=== PATIENT | male | born 1985 | race Caucasian/White ===

== ENCOUNTER 2019-08-12 12:07 | Emergency (ER) | payer SELFPAY ==
[2019-08-12 12:27] VITALS: BP 155/87; PULSE 77; RESP 20; TEMP 36.7; O2SAT 98; BMI 35.4
--- NOTE | 2019-08-12 12:38 | XR_ITS ---
WS: [id number] XR chest 1V portable [id number] REASON FOR EXAM: cough FINDINGS: The heart and mediastinum were normal. The lung fraga are well aerated. There is no pneumonia, pleural effusion, pulmonary edema, mass effe ct, or pneumothorax. The left hilum is slightly prominent and there is numerous granulomas seen not n oted on previous exam February 20, 2016. The apices sees were normal. XR/XR chest 1V portable [id number] IMPRESSION: Slight prominence of the left hilum with numerous granulomas. A mass is not see n. Negative chest
--- NOTE | 2019-08-12 12:48 | W.ED.SOB ---
HPI - SOB/Dyspnea General: Chief Complaint: Shortness of Breath/Dyspnea Stated Complaint: cough/right side pain Time Seen by Provider: 08/12/19 12:38 History of Present Illness: Associated symptoms: Reports palpitations Review of Systems General: Reports: 10 or more systems reviewed and unremarkable except in HPI and below Card: Reports: palpitations and shortness of breath on exertion Resp: Reports: shortness of breath, non-productive cough and pain on inspiration PFSH ED PFSH: Social History Smoking and tobacco status: current every day smoker Physical Exam Const: COMMON NORMALS: oriented x3 and alert GENERAL APPEARANCE: cooperative and ill appearing HENMT: COMMON NORMALS: normocephalic and head/scalp atraumatic HEAD & SCALP: normocephalic and atraumatic THROAT: postnasal drainage Neck/C-Spine: COMMON NORMALS: no JVD Resp: COMMON NORMALS: no use of accessory muscles and clear to auscultation bilaterally EFFORT & INSPECTION: Yes able to speak in complete sentences AUSCULTATION: clear to auscultation bilaterally Cardio: COMMON NORMALS: no JVD, regular rate and regular rhythm RATE: regular rate RHYTHM: regular rhythm Extremity: COMMON NORMALS: normal to inspection, full ROM and no pedal edema Neuro: COMMON NORMALS: oriented x3 SENSORIUM/ORIENTATION: Yes alert Course Vital Signs: Vital signs: Vital Signs Temperature 98.1 F 08/12/19 12:27 Pulse Rate 77 08/12/19 12:27 Respiratory Rate 20 H 08/12/19 12:27 Blood Pressure 155/87 08/12/19 12:27 Pulse Oximetry 98 08/12/19 12:27 MDM - SOB/Dyspnea Lab Data: Labs: Lab Results 08/12/19 08/12/19 08/12/19 Range/Units 13:02 13:02 13:02 WBC 5.6 (4.0-10.0) 10^3/ uL RBC 4.93 (4.1-5.3) 10^6/u L Hgb 15.4 (11.7-16.6) g/dL Hct 47.0 (42.0-52.0) % MCV 95.3 H (80-94) fL MCH 31.2 (28.0-34.0) pg MCHC 32.8 (30.0-36.0) g/dL RDW 11.9 L (12.1-15.1) % Plt Count 230 (130-400) 10^3/c mm MPV 10.1 (7.4-10.4) fL Neut % (Auto) 65.3 % Lymph % (Auto) 20.8 % [place] % (Auto) 7.5 % Eos % (Auto) 5.5 % Baso % (Auto) 0.5 % Neut # (Auto) 3.7 (1.8-7.7) 10^3/u L Lymph # (Auto) 1.2 (0.8-4.8) 10^3/u L [place] # (Auto) 0.4 (0.2-0.9) 10^3/u L Eos # (Auto) 0.3 (0.0-0.8) 10^3/u L Baso # (Auto) 0.0 (0.0-0.1) 10^3/u L Nucleated RBC % (a uto) 0 % Nucleated RBCs # 0.0 /100WBC D-Dimer 0.64 H (0-0.59) ug/mIFE U Sodium 141 (136-145) mmol/L Potassium 3.9 (3.5-5.1) mmol/L Chloride 105 (98-107) mmol/L Carbon Dioxide 30 H (22-29) mmol/L Anion Gap 9.9 (5-19) BUN 11 (6-20) mg/dL Creatinine 0.9 (0.7-1.2) mg/dL GFR Calculation 96.6 (90-130) mL/min Glucose 110 (65-115) mg/dL Calculated Osmolal ity 289 (285-295) mOsm/k g Calcium 9.1 (8.5-10.5) mg/dL Total Bilirubin 0.3 (0.15-1.2) mg/dL AST 17 (0-40) U/L ALT 28 (0-41) U/L Alkaline Phosphata se 75 (40-130) IU/L NT-Pro-B Natriuret Pep 20 (0-125) pg/mL Total Protein 7.6 (6.6-8.7) g/dL Albumin 3.7 (3.5-5.2) g/dL Globulin 3.9 (1.3-4.6) g/dL Influenza Type A A g (Negative) POC Influenza B Ag (Negative) 08/12/19 Range/Units 13:25 WBC (4.0-10.0) 10^3/ uL RBC (4.1-5.3) 10^6/u L Hgb (11.7-16.6) g/dL Hct (42.0-52.0) % MCV (80-94) fL MCH (28.0-34.0) pg MCHC (30.0-36.0) g/dL RDW (12.1-15.1) % Plt Count (130-400) 10^3/c mm MPV (7.4-10.4) fL Neut % (Auto) % Lymph % (Auto) % [place] % (Auto) % Eos % (Auto) % Baso % (Auto) % Neut # (Auto) (1.8-7.7) 10^3/u L Lymph # (Auto) (0.8-4.8) 10^3/u L [place] # (Auto) (0.2-0.9) 10^3/u L Eos # (Auto) (0.0-0.8) 10^3/u L Baso # (Auto) (0.0-0.1) 10^3/u L Nucleated RBC % (a uto) % Nucleated RBCs # /100WBC D-Dimer (0-0.59) ug/mIFE U Sodium (136-145) mmol/L Potassium (3.5-5.1) mmol/L Chloride (98-107) mmol/L Carbon Dioxide (22-29) mmol/L Anion Gap (5-19) BUN (6-20) mg/dL Creatinine (0.7-1.2) mg/dL GFR Calculation (90-130) mL/min Glucose (65-115) mg/dL Calculated Osmolal ity (285-295) mOsm/k g Calcium (8.5-10.5) mg/dL Total Bilirubin (0.15-1.2) mg/dL AST (0-40) U/L ALT (0-41) U/L Alkaline Phosphata se (40-130) IU/L NT-Pro-B Natriuret Pep (0-125) pg/mL Total Protein (6.6-8.7) g/dL Albumin (3.5-5.2) g/dL Globulin (1.3-4.6) g/dL Influenza Type A A g Negative (Negative) POC Influenza B Ag Negative (Negative) Discharge Plan Discharge Patient Disposition: Home, Self-Care Clinical Impression: Bronchitis, Acute dyspnea Condition: Stable Prescriptions: New Bactrim DS 800-160 mg tablet 1 tab PO BID 10 Days Qty: 20 RF: 0 prednisone 10 mg tablets,dose pack See Rx Instructions .ROUTE .COMPLEX Qty: 21 RF: 0 albuterol sulfate 90 mcg/actuation HFA aerosol inhaler 2 inh INHALATION Q6H PRN (Reason: shortness of breath or wheezing) Qty: 8.5 RF: 0 Discharge Orders: Discharge Order (Routine); Ordered 08/12/19 Ordered By: Deepak Wood Coding Level of Care Code ED Veneer Jointer Offbearer for Chg Fwd Exam Detailed
[2019-08-12 13:12] LABS: Basophils % 0.5 %; Eosinophils # 0.3 10^3/uL (0.0-0.8); Eosinophils % 5.5 %; Hemoglobin 15.4 g/dL (11.7-16.6); Lymphocytes # 1.2 10^3/uL (0.8-4.8); Lymphocytes % 20.8 %; Mean Corpuscular HGB Conc 32.8 g/dL (30.0-36.0); Mean Corpuscular Hemoglobin 31.2 pg (28.0-34.0); Mean Corpuscular Volume 95.3 fL (80-94); Mean Platelet Volume 10.1 fL (7.4-10.4); Monocytes # 0.4 10^3/uL (0.2-0.9); Monocytes % 7.5 %; Neutrophils # 3.7 10^3/uL (1.8-7.7); Neutrophils % 65.3 %; Nucleated Red Blood Cells % 0 %; Platelet Count 230 10^3/cmm (130-400); Red Blood Count 4.93 10^6/uL (4.1-5.3); Red Cell Distribution Width 11.9 % (12.1-15.1); White Blood Count 5.6 10^3/uL (4.0-10.0)
[2019-08-12] MEDS: sodium chloride 0.9% 500 ML 999 ML IV (13:17)
[2019-08-12 13:22] LABS: D Dimer 0.64 ug/mIFEU (0-0.59)
--- NOTE | 2019-08-12 13:24 | CT_ITS ---
WS: [id number] CTA OF THE CHEST WITH PULMONARY EMBOLISM PROTOCOL TECHNIQUE: High-resolution contrast enhanced CTA of the chest with coronal and sagittal reformatted i mages with pulmonary embolism protocol. MIP images are also reviewed. CLINICAL INFORMATION: dyspnea COMPARISON: None. DLP: 1084.[address] scans at [facility] use at least one of these dose optimization techniques: automat ed exposure control; mA and/or kV adjustment per patient size (includes targeted exams where dose is matched to clinical indication); or iterative reconstruction. FINDINGS: Some images degraded by motion. Proximal main pulmonary arteries are normal. Segmental and subsegmental pulmonary arteries appear pat ent. Distal subsegmental pulmonary arteries degraded by motion. No evidence for pulmonary embolus. Right perihilar groundglass infiltrate with right hilar lymphadenopathy measuring 1.8 cm. Enlarged le ft AP window lymph nodes measuring 12 mm in short axis dimension. Enlarged left hilar lymph nodes. Ri ght infrahilar lymphadenopathy measuring 1.8 cm. Associated bronchovascular thickening. A few hazy groundglass opacities in the left upper lobe. Right basilar atelectasis. Adrenal glands are normal. Partially visualized hepatomegaly. Normal GE junction. Adrenal glands are normal. Partially visualized right renal low-attenuation lesion likely cyst. Prominent lymph node in the upper abdomen at the saul hepatis measuring 13 mm nonspecific but likely reactive. Notified Deepak Wood DO at 08/12/2019 2:[address]/CT angio chest PE protcl [id number] IMPRESSION: 1. Proximal main pulmonary arteries are normal. No evidence of pulmonary embol us. 2. Hazy groundglass infiltrates in the right hilum and right upper lobe. A few patchy groundglass opacities in the left upper lobe. Findings may be infectiou s or inflammatory in etiology. 3. Bilateral hilar lymphadenopathy with right infrahilar lymphadenopathy. Asso ciated bronchovascular thickening. Findings may be infectious/inflammatory forrest ellis malignancy is not excluded. Recommend short interval follow-up chest CT aft er treatment. 4. Enlarged AP window lymph nodes. 5. Partially visualized hepatomegaly in the upper abdomen. 6. Slightly enlarged lymph node in the upper abdomen partially visualized jama uring 13 mm.
[2019-08-12 13:38] LABS: Alanine Aminotransferase 28 U/L (0-41); Albumin Level 3.7 g/dL (3.5-5.2); Alkaline Phosphatase 75 IU/L (40-130); Anion Gap 9.9 (5-19); Aspartate Amino Transferase 17 U/L (0-40); Blood Urea Nitrogen 11 mg/dL (6-20); Calcium 9.1 mg/dL (8.5-10.5); Carbon Dioxide 30 mmol/L (22-29); Chloride 105 mmol/L (98-107); Globulin 3.9 g/dL (1.3-4.6); Glomerular Filtration Rate 96.6 mL/min (90-130); Glucose 110 mg/dL (65-115); NT Pro B Type Natriuretic Pept 20 pg/mL (0-125); Osmolality Calculated 289 mOsm/kg (285-295); Potassium 3.9 mmol/L (3.5-5.1); Sodium 141 mmol/L (136-145); Total Bilirubin 0.3 mg/dL (0.15-1.2); Total Protein 7.6 g/dL (6.6-8.7)
[2019-08-12] MEDS: iohexol 350 mg/mL 100 mL Btl IV ×2 (13:46→13:47)
[2019-08-12 14:01] LABS: Influenza A by IFA Negative (Negative); Influenza B by IFA Negative (Negative)
[2019-08-12 15:07] VITALS: BP 126/78; PULSE 68; RESP 18; TEMP 37; O2SAT 98
== END 2019-08-12 15:10 | disposition home or self-care (01) ==
PROVIDERS: Emergency Provider Family Medicine
DX: J40 Bronchitis, not specified as acute or chronic (principal); F17.200 Nicotine dependence, unspecified, uncomplicated
CPT/HCPCS: 12345; 36415; 71045; 71275; 80053; 83880; 85025; 85378; 87804; 99283; 99284; J7040; Q9967

== ENCOUNTER 2019-10-18 14:54 | Emergency (ER) | payer SELFPAY ==
[2019-10-18 15:07] VITALS: BP 141/88; PULSE 78; RESP 18; TEMP 36.5; O2SAT 98; BMI 35.4
--- NOTE | 2019-10-18 15:51 | W.ED.SKABFB ---
HPI - Skin/Abscess/Foreign Bdy General: Chief complaint: Skin/Abscess/Foreign Body Stated complaint: rash Time Seen by Provider: 10/18/19 15:51 Source: patient Mode of arrival: ambulatory Limitations: no limitations History of Present Illness: HPI narrative: Patient is a 34-year-old male who presents to ED today with multiple red lesions to the left side of his abdomen and left arm that he began noticing yesterday. He describes the lesions as itchy in nature. He has not had any new medications or environmental, chemical, household exposures. States he does have cats in his home. complaint: lesion Onset (ago): day(s) (yesterday) Tetanus up to date: yes Location: chest and LUE Quality: pruritic Relieving factors: none Exacerbating factors: none Context: none Associated symptoms: Deny chills or fever(s) Treatments prior to arrival: none Review of Systems Const: Denies: fever(s) or chills ENMT: Denies: odynophagia, ear or mastoid pain or nasal congestion Card: Denies: chest pain Resp: Denies: dyspnea Musc: Denies: neck pain, back pain, extremity pain, extremity swelling, joint pain or joint swelling Skin/Breast: Reports: new lesions Neuro: Denies: headache(s), numbness in extremities or weakness in extremities PFSH ED PFSH: Social History Smoking and tobacco status: current every day smoker Physical Exam Const: COMMON NORMALS: no acute distress, patient oriented x3, no limitations and well nourished NUTRITIONAL APPEARANCE: obese Neuro: COMMON NORMALS: patient oriented x3 Skin: OTHER: pt has approximately 5 bite like lesions to L side of his abdomen and one similar lesion to L forearm; lesions are erythematous and wheeled and some of them have small punctate lesion consistent with bite Course Vital Signs: Vital signs: Vital Signs Temperature 97.7 F 10/18/19 15:07 Pulse Rate 78 10/18/19 15:07 Respiratory Rate 18 10/18/19 15:07 Blood Pressure 141/88 10/18/19 15:07 Pulse Oximetry 98 10/18/19 15:07 Discharge Plan Discharge Patient Disposition: Home, Self-Care Clinical Impression: Insect bite, multiple Condition: Stable Prescriptions: No Action prednisone 10 mg tablets,dose pack See Rx Instructions .ROUTE .COMPLEX Qty: 21 RF: 0 albuterol sulfate 90 mcg/actuation HFA aerosol inhaler 2 inh INHALATION Q6H PRN (Reason: shortness of breath or wheezing) Qty: 8.5 RF: 0 Discharge Orders: Discharge Order (Routine); Ordered 10/18/19 Ordered By: Cata Alan Discharge Diet: Usual diet Discharge Activity: Resume usual activity Patient Instructions: Insect Bites and Stings Discharge Date/Time: 10/18/19 16:00 Coding Level of Care Code ED Solid Fiber Paster Operator for Mary Chacno
== END 2019-10-18 16:00 | disposition home or self-care (01) ==
PROVIDERS: Emergency Provider Physician Assistant
DX: S30.861A Insect bite (nonvenomous) of abdominal wall, initial encounter (principal); S40.862A Insect bite (nonvenomous) of left upper arm, initial encounter; W57.XXXA Bitten or stung by nonvenomous insect and other nonvenomous arthropods, initial encounter; F17.210 Nicotine dependence, cigarettes, uncomplicated
CPT/HCPCS: 12345; 99281

== ENCOUNTER 2020-10-11 13:28 | Emergency (ER) | payer SELFPAY ==
[2020-10-11 13:39] VITALS: BP 129/79; PULSE 92; RESP 18; TEMP 36.7; O2SAT 97; BMI 42.8
--- NOTE | 2020-10-11 14:10 | XRR_ITS ---
PROCEDURE INFORMATION: Exam: XR Left Hip Exam date and time: 10/11/2020 2:34 PM Age: 35 years old Clinical indication: Hip pain; Left hip; Patient HX: No known trauma, woke up with pain; Additional info: Pain; One view pelvis too please TECHNIQUE: Imaging protocol: XR Left hip. Views: 2 or 3 views hip with pelvis when performed. COMPARISON: CT abdomen pelvis w con* [id number] 02/03/2017 2:20 PM FINDINGS: Bones/joints: Unremarkable. No acute fracture. Soft tissues: Unremarkable. XR/XR hip LT 2-3V wo/w pel* [id number] IMPRESSION: No acute findings.
--- NOTE | 2020-10-11 14:10 | W.ED.EXTPRO ---
HPI - Extremity Problem General: Chief complaint: Extremity Problem,Nontraumatic Stated complaint: SEVERE L HIP PAIN, UNABLE TO RAISE LEG Time Seen by Provider: 10/11/20 14:03 Source: patient Mode of arrival: wheelchair Limitations: no limitations History of Present Illness: HPI Narrative: Patient is a 35-year-old male who presents to ED today with a complaint of left hip pain over the past few days. Patient states pain is progressively worsened since onset. He has not had any known injury or trauma to the hip. He has not had any previous issues with the joint. He denies joint feeling red or warm. He has not been running fevers. He states pain is worse with walking. He states it feels like it is out of joint . He denies numbness/tingling/loss of sensation to the left lower extremity. He has not noticed any swelling or color/temperature changes to the extremity. MD Complaint: joint pain Onset (ago): day(s) Pain Consistency: constant Location: left and lower extremity Radiation: none Relieving factors: nothing Exacerbating factors: range of motion, weight bearing, walking and palpation Associated symptoms: Reports no associated symptoms; Deny chest pain or fever(s) Review of Systems Const: Denies: fever(s), chills, body aches, fatigue or malaise Card: Denies: chest pain or palpitations Resp: Denies: dyspnea GI: Denies: nausea or vomiting : Denies: flank pain or dysuria Musc: Reports: joint pain and limited range of motion; Denies: neck pain, back pain, extremity pain, extremity swelling, joint swelling, joint redness, joint warmth or muscle cramps Neuro: Reports: difficulty walking (secondary to discomfort ); Denies: numbness in extremities, weakness in extremities or sensory changes [facility] ED PFSH: Social History Smoking and tobacco status: current every day smoker Physical Exam Const: COMMON NORMALS: no acute distress, patient oriented x3, no limitations and alert GENERAL APPEARANCE: cooperative NUTRITIONAL APPEARANCE: obese morbidly obese ORIENTATION/CONSCIOUSNESS: Yes awake, Yes oriented to person, Yes oriented to place and Yes oriented to time Resp: COMMON NORMALS: normal respiratory effort and clear to auscultation bilaterally AUSCULTATION: clear to auscultation bilaterally Cardio: COMMON NORMALS: regular rate and regular rhythm RATE: regular rate RHYTHM: regular rhythm : COMMON NORMALS: Yes no CVA tenderness BLADDER/KIDNEY EXAM: Yes no CVA tenderness Back/Pelvis: COMMON NORMALS: no CVA tenderness, thoracic and lumbar spine normal to inspection, no thoracic nor lumbar tenderness, thoraco-lumbar ROM normal and straight leg raise negative bilaterally THORACIC SPINE/UPPER BACK: Yes normal to inspection and Yes thoracic ROM normal LUMBAR SPINE/LOWER BACK: Yes normal to inspection and Yes lumbar ROM normal PELVIS: Yes buttocks normal SACROILIAC JOINTS: Yes SI joints normal Extremity: COMMON NORMALS: capillary refill normal, no joint enlargement, no clubbing, cyanosis or edema, no calf tenderness and no pedal edema GENERAL: Yes normal exam except as noted LEFT LOWER EXTREMITY: Yes hip joint Left hip: Yes inspection (normal visual inspection ), Yes palpation (TTP posterior/lateral ), Yes ROM (decreased secondary to discomfort) and Yes neurovascular exam (normal) OTHER: pain with hip flexion however he is able to fully flex knee up against his chest w/o eliciting pain from the hip Neuro: COMMON NORMALS: patient oriented x3, moves all extremities, no focal motor deficits and no sensory deficits noted SENSORIUM/ORIENTATION: Yes alert, Yes oriented to person, Yes oriented to place and Yes oriented to time GAIT: Yes Unable to assess gait Skin: COMMON NORMALS: no rashes or lesions noted GENERAL SKIN EXAM: no rashes or lesions noted TRAUMA: no lacerations or abrasions Course Vital Signs: Vital signs: Vital Signs Temperature 98.0 F 10/11/20 13:39 Pulse Rate 92 10/11/20 13:39 Respiratory Rate 18 10/11/20 13:39 Blood Pressure 129/79 10/11/20 13:39 Pulse Oximetry 97 10/11/20 13:39 MDM - Extremity (Nontraumatic) MDM Narrative: Medical decision making narrative: Pain down from a 10/10 to a 5/10. He was able to ambulate here. XR negative. He is stable for DC with follow up. Return to ED precautions discussed. Imaging Data^: XR L hip/pelvis: Radiologist's impression: [facility] [address] [place] [address] XRay Report Signed Patient: Abdulkadir Cruz Unit #: [id number] : [id number] Age/Sex: 35 / M ADM Date: 10/11/20 Loc: ER Room/Bed: Attending Dr: Ordering Provider/Ordering MD: Cata Alan Date of Service: 10/11/20 Procedure(s): XR hip LT 2-3V wo/w pel* [id number] Accession Number(s): [id number] Report Number: [id number] PROCEDURE INFORMATION: Exam: XR Left Hip Exam date and time: 10/11/2020 2:34 PM Age: 35 years old Clinical indication: Hip pain; Left hip; Patient HX: No known trauma, woke up with pain; Additional info: Pain; One view pelvis too please TECHNIQUE: Imaging protocol: XR Left hip. Views: 2 or 3 views hip with pelvis when performed. COMPARISON: CT abdomen pelvis w con* [id number] 02/03/2017 2:20 PM FINDINGS: Bones/joints: Unremarkable. No acute fracture. Soft tissues: Unremarkable. XR/XR hip LT 2-3V wo/w pel* [id number] IMPRESSION: No acute findings. Dictated By: Jv Frazier MD Signed By: Jv Frazier MD Signed Date/Time: 10/11/201518 DD/ 17 Discharge Plan Discharge Patient Disposition: Home Clinical Impression: Acute pain of left hip Condition: Stable Prescriptions: New ibuprofen 800 mg tablet 800 mg PO Q8H PRN (Reason: pain) Qty: 20 RF: 0 Medrol (Scott) 4 mg tablets,dose pack See Rx Instructions .ROUTE .COMPLEX Qty: 21 RF: 0 Discontinued prednisone 10 mg tablets,dose pack See Rx Instructions .ROUTE .COMPLEX Qty: 21 RF: 0 No Action albuterol sulfate 90 mcg/actuation HFA aerosol inhaler 2 inh INHALATION Q6H PRN (Reason: shortness of breath or wheezing) Qty: 8.5 RF: 0 Discharge Orders: Discharge ED (Routine); Ordered 10/11/20 Ordered By: Cata Alan Activity Restrictions/Additional Instructions: Fill your prescriptions and begin taking them as directed. You may also apply ice/heat as needed for discomfort. Gentle stretching exercises. Please follow-up with your primary care provider if pain does not improve in the next 3 to 5 days. You may return to the emergency department for severe worsening pain, inability to ambulate, color or temperature changes to your lower extremity, losing control of your bowels, inability to urinate, or any other concerns you may have. Coding Level of Care Code ED Digital Associate for Chg Fwd Exam Comprehensive
[2020-10-11] MEDS: dexamethasone 10 mg/mL INJ 8 MG IM (15:22)
[2020-10-11] MEDS: ketorolac 60 mg/2 mL INJ IM (15:25)
[2020-10-11] MEDS: orphenadrine 30 mg/mL Inj 2 mL 60 MG IM (15:28)
== END 2020-10-11 17:15 | disposition home or self-care (01) ==
PROVIDERS: Emergency Provider Physician Assistant
DX: M25.552 Pain in left hip (principal); F17.210 Nicotine dependence, cigarettes, uncomplicated
CPT/HCPCS: 73502; 96372; 99283; J1100; J1885; J2360

== ENCOUNTER 2021-04-15 16:56 | Emergency (ER) | payer SELFPAY ==
[2021-04-15 17:00] VITALS: BP 143/104; PULSE 112; RESP 17; TEMP 36.6; O2SAT 97; BMI 44.3
--- NOTE | 2021-04-15 17:06 | ED_ITS ---
HPI - Skin/Abscess/Foreign Bdy General: Chief complaint: Skin/Abscess/Foreign Body Stated complaint: Spot under stomach causing discomfort Time Seen by Provider: 04/15/21 17:06 History of Present Illness: HPI narrative: 36-year-old male comes in with a tender bulging area to his right lower abdomen. Patient reports for the last 4 days he has noticed it and it seems to have gotten larger. Patient appears well. Patient appears no acute distress. Review of Systems General: Reports: 10 or more systems reviewed and unremarkable except in HPI and below Skin/Breast: Reports: changing lesions and other PFSH ED PFSH: Social History Smoking and tobacco status: current every day smoker Physical Exam Const: COMMON NORMALS: no acute distress and patient oriented x3 GENERAL APPEARANCE: cooperative HENMT: COMMON NORMALS: normocephalic HEAD & SCALP: normal to inspection and normocephalic Eye: GENERAL EYE: appearance normal, both eyes and all related structures Neck/C-Spine: COMMON NORMALS: full ROM Chest: COMMONS NORMALS: normal inspection of the chest Resp: COMMON NORMALS: normal respiratory effort EFFORT & INSPECTION: Yes able to speak in complete sentences Cardio: COMMON NORMALS: regular rate and regular rhythm RATE: regular rate RHYTHM: regular rhythm GI: COMMON NORMALS: non-tender Extremity: COMMON NORMALS: normal to inspection Neuro: COMMON NORMALS: patient oriented x3 and moves all extremities Psych: COMMON NORMALS: mental status grossly normal and cooperative Skin: NARRATIVE SKIN EXAM: Area of redness approximately 6 cm to the right lower abdomen with a central 2 cm bulging abscess. Patient has fluctuance in the center part of his abscess. Some ecchymosis and redness is noted to it. Procedures Abscess I/D Site: abdomen Side (if applicable): right Technique: incised with #11 blade Course Vital Signs: Vital signs: Vital Signs Temperature 97.8 F 04/15/21 17:00 Pulse Rate 112 H 04/15/21 17:00 Respiratory Rate 17 04/15/21 17:00 Blood Pressure 143/104 04/15/21 17:00 Pulse Oximetry 97 04/15/21 17:00 MDM - Skin/Abscess/Foreign Bdy MDM Narrative: Medical decision making narrative: 36-year-old male comes in with a lesion to his right lower abdomen. On exam we noticed an abscess with some surrounding induration of the tissue. Approximately 6 cm total. Vital signs are normal except for some mild elevation in pulse at 112. Patient is afebrile. Differential diagnosis includes abscess, cellulitis, infected insect bite. Patient appears to have an abscess, I went ahead and lanced it with 11 blade scalpel. Purulent bloody drainage was expressed from the wound. Patient tolerated well. Ice pack was used for anesthesia. Patient was started on Bactrim 1 tablet twice a day for 5 days. Patient was given 1 hydrocodone tablet tonight for pain. Recommend follow-up as needed. Return to the ER for worsening symptoms or new concerns. Discharge Plan Discharge Patient Disposition: Home Clinical Impression: Abscess of skin or subcutaneous tissue Qualifiers: Site of cutaneous abscess: trunk Site of cutaneous abscess of trunk: abdominal wall Qualified Code(s): L02.211 - Cutaneous abscess of abdominal wall Condition: Stable Prescriptions: New Bactrim DS 800-160 mg tablet 1 tab PO BID 5 Days Qty: 10 RF: 0 No Action albuterol sulfate 90 mcg/actuation HFA aerosol inhaler 2 inh INHALATION Q6H PRN (Reason: shortness of breath or wheezing) Qty: 8.5 RF: 0 ibuprofen 800 mg tablet 800 mg PO Q8H PRN (Reason: pain) Qty: 20 RF: 0 Medrol (Scott) 4 mg tablets,dose pack See Rx Instructions .ROUTE .COMPLEX Qty: 21 RF: 0 Discharge Orders: Discharge ED (Routine); Ordered 04/15/21 Ordered By: Bruce Bhat Discharge Diet: Usual diet Discharge Activity: Increase activity as tolerated Patient Instructions: Abscess Incision and Drainage (DC), Opioid Safety Activity Restrictions/Additional Instructions: Home and rest. Use warm moist packs to the area to help promote drainage. Drink plenty of water with antibiotic. Activity as tolerated. Follow-up with primary care in 3 days for recheck. Return to the ER for high fever greater than 100.4, worsening symptoms, or new concerns. Coding Level of Care Code ED Reinsurance Clerk for Mary Chacon Exam Comprehensive
[2021-04-15 17:30] VITALS: PULSE 112; RESP 17; O2SAT 97
[2021-04-15] MEDS: HYDROcodone-acetaminophen 7.5-325 mg Tablet 1 TAB PO (17:30)
[2021-04-15] MEDS: sulfamethoxazole-trimeth DS 160-800 mg Tablet 1 TAB PO (17:30)
== END 2021-04-15 17:33 | disposition home or self-care (01) ==
PROVIDERS: Emergency Provider Nurse Practitioner Family
DX: L02.211 Cutaneous abscess of abdominal wall (principal); F17.210 Nicotine dependence, cigarettes, uncomplicated
CPT/HCPCS: 10060; 99283

== ENCOUNTER 2021-08-28 02:45 | Emergency (ER) | payer SELFPAY ==
[2021-08-28 02:56] VITALS: BP 151/95; PULSE 78; RESP 22; TEMP 36.6; O2SAT 99; BMI 36.9
--- NOTE | 2021-08-28 04:08 | CTR_ITS ---
PROCEDURE INFORMATION: Exam: CT Abdomen And Pelvis With Contrast Exam date and time: 08/28/2021 4:52 AM Age: 36 years old Clinical indication: Injury or trauma; Fall; Blunt; Llq; Injury details: Left rib/side pain; Additional info: Fall luq pain TECHNIQUE: Imaging protocol: Computed tomography of the abdomen and pelvis with contrast. Radiation optimization: All CT scans at this facility use at least one of these dose optimization techniques: automated exposure control; mA and/or kV adjustment per patient size (includes targeted exams where dose is matched to clinical indication); or iterative reconstruction. Contrast material: [id number]; Contrast volume: 95 ml; Contrast route: INTRAVENOUS (IV); COMPARISON: CT abdomen pelvis w con* [id number] 02/03/2017 2:20 PM RADIATION DOSE METRICS: Total DLP (mGy-cm): 1981.38 FINDINGS: Lungs: The lung bases are clear. No effusion Liver: Normal. No mass. Gallbladder and bile ducts: No wall thickening, pericholecystic fluid or stones. Pancreas: Normal. No ductal dilation. Spleen: Normal. No splenomegaly. Adrenal glands: Normal. No mass. Kidneys and ureters: 1.1 cm right renal cyst. Stomach and bowel: Diverticulosis without diverticulitis. Mild amount of formed stool in the colon. Appendix: No evidence of appendicitis. Intraperitoneal space: Unremarkable. No free air. No significant fluid collection. Vasculature: Unremarkable. No abdominal aortic aneurysm. Lymph nodes: Unremarkable. No enlarged lymph nodes. Urinary bladder: Unremarkable as visualized. Reproductive: Unremarkable as visualized. Bones/joints: Nondisplaced left 7th rib fracture. Right-sided osteitis condensans mahogany. Soft tissues: Unremarkable. CT/CT abdomen pelvis w con* [id number] IMPRESSION: 1. Diverticulosis without diverticulitis. 2. Mild constipation. 3. Nondisplaced left 7th rib fracture. COMMENTS: Consistent with the [employer]'s Incidental Findings Committee white paper (J Am Nayely Radiol 2018): Any incidental renal lesion less than 1 cm or classified as too small to characterize, or any incidental cystic renal lesion characterized as simple-appearing, is likely benign. No follow-up imaging is recommended for these lesions per consensus recommendations based on imaging criteria.
[2021-08-28] MEDS: sodium chloride 0.9% 1,000 ML 999 ML IV (04:21)
[2021-08-28 04:32] LABS: Basophils # 0.1 10^3/uL (0.0-0.1); Basophils % 0.9 %; Eosinophils # 0.2 10^3/uL (0.0-0.8); Eosinophils % 2.5 %; Hematocrit 46.8 % (42.0-52.0); Hemoglobin 15.2 g/dL (11.7-16.6); Lymphocytes # 2.3 10^3/uL (0.8-4.8); Lymphocytes % 24.2 %; Mean Corpuscular HGB Conc 32.5 g/dL (30.0-36.0); Mean Corpuscular Hemoglobin 31.6 pg (28.0-34.0); Mean Corpuscular Volume 97.3 fl (80-94); Mean Platelet Volume 10.7 fL (7.4-10.4); Monocytes # 0.7 10^3/uL (0.2-0.9); Monocytes % 6.8 %; Neutrophils # 6.23 10^3/uL (1.8-7.7); Neutrophils % 65.2 %; Nucleated Red Blood Cells % 0 %; Platelet Count 267 10^3/cmm (130-400); Red Blood Count 4.81 10^6/uL (4.1-5.3); White Blood Count 9.6 10^3/uL (4.0-10.0)
[2021-08-28] MEDS: iohexol 300 mg/mL 100 mL Btl IV (04:52)
[2021-08-28 04:53] LABS: Lactate (Lactic Acid level) 1.2 mmol/L (0.5-2.2)
[2021-08-28 04:54] LABS: Alanine Aminotransferase 33 U/L (0-41); Alkaline Phosphatase 111 IU/L (40-130); Anion Gap 14.8 (5-19); Aspartate Amino Transferase 23 U/L (0-40); Blood Urea Nitrogen 16 mg/dL (6-20); C Reactive Protein 18.1 mg/L (0.0-4.9); Calcium 9.6 mg/dL (8.5-10.5); Carbon Dioxide 22 mmol/L (22-29); Chloride 102 mmol/L (98-107); Globulin 4.1 g/dL (1.3-4.6); Glomerular Filtration Rate 95.5 mL/min (90-130); Glucose 108 mg/dL (65-115); Lipase 33 U/L (13-60); Osmolality Calculated 282 mOsm/kg (285-295); Potassium 3.8 mmol/L (3.5-5.1); Sodium 135 mmol/L (136-145); Total Bilirubin 0.3 mg/dL (0.15-1.2); Total Protein 8.1 g/dL (6.6-8.7)
[2021-08-28 05:08] LABS: Add Urine Microscopic? YES; Bilirubin Urine Neg (Negative); Blood Urine 2+ (Negative); Glucose Urine UA Norm (Normal); Ketones Urine 1+ (Negative); Leukocyte Esterase Urine Negative (Negative); Nitrate Urine Negative (Negative); Protein Urine Neg (Negative); Specific Gravity, Urine 1.025 (1.005-1.030); Urine Appearance Clear (CLEAR); Urine Color Yellow (Yellow); Urobilinogen Urine 4 mg/dL (Negative); pH Urine 5 (5-7)
[2021-08-28 05:16] LABS: Squamous Epithelial Cell Urine 0-4 /hpf (0-5); WBC Urine 0-4 /hpf (0-5)
[2021-08-28 05:17] LABS: Add Urine Culture? No; Bacteria Urine TRACE /hpf; Mucus Urine 4+ /hpf
[2021-08-28 06:01] VITALS: BP 138/82; PULSE 88; RESP 20; O2SAT 97
--- NOTE | 2021-08-30 01:57 | ED_ITS ---
HPI - Abdominal Pain General: Chief Complaint: Abdominal Pain Stated Complaint: ABD Pain Time Seen by Provider: 08/28/21 03:49 Source: patient History of Present Illness: 36 year old male with a fall from standing level. He presents with left lower chest/abdominal and flank pain. This happened more than 24 hours ago. No significant shortness of breath. No blood in the sputum. He has not vomited. No fever. MD elicited complaint: abdominal pain and flank pain Pertinent past history: none Onset (ago): hour(s) Pain Consistency: constant Location: Chest, LUQ and L flank Severity: moderate Quality: stabbing Radiation: none Migration to: no migration Exacerbating factors: movement Relieving factors: nothing Associated Symptoms: Denies change in bowel habits, change in stool character, diarrhea, dyspepsia, dysuria, fever(s), nausea, syncope and vomiting Review of Systems Const: Denies: fever(s) Card: Denies: syncope Resp: Denies: dyspnea, productive cough or non-productive cough GI: Denies: nausea, vomiting, diarrhea, change in bowel habits or change in stool character : Denies: dysuria PFSH ED PFSH: Social History Smoking and tobacco status: current every day smoker Course Vital Signs: Vital signs: Vital Signs Temperature 97.9 F 08/28/21 02:56 Pulse Rate 88 08/28/21 06:01 Respiratory Rate 20 H 08/28/21 06:01 Blood Pressure 138/82 08/28/21 06:01 Pulse Oximetry 97 08/28/21 06:01 MDM - Abdominal Pain Medical Decision Making Labs essentially normal. CT reveals a 7th rib fx on the left responsible for his pain. No organ injury. He'll be discharged. Warning signs given. Lab Data : 08/28/21 04:15 08/28/21 04:15 Labs/Radiology: Radiology Impressions Abdomen/Pelvis CT 08/28/21 04:08 IMPRESSION: 1. Diverticulosis without diverticulitis. 2. Mild constipation. 3. Nondisplaced left 7th rib fracture. COMMENTS: Consistent with the [employer]'s Incidental Findings Committee white paper (J Am Nayely Radiol 2018): Any incidental renal lesion less than 1 cm or classified as too small to characterize, or any incidental cystic renal lesion characterized as simple-appearing, is likely benign. No follow-up imaging is recommended for these lesions per consensus recommendations based on imaging criteria. Laboratory Results WBC 9.6 10^3/uL (4.0-10.0) 08/28/21 04:15 RBC 4.81 10^6/uL (4.1-5.3) 08/28/21 04:15 Hgb 15.2 g/dL (11.7-16.6) 08/28/21 04:15 Hct 46.8 % (42.0-52.0) 08/28/21 04:15 MCV 97.3 fl (80-94) H 08/28/21 04:15 MCH 31.6 pg (28.0-34.0) 08/28/21 04:15 MCHC 32.5 g/dL (30.0-36.0) 08/28/21 04:15 RDW 12.0 % (12.1-15.1) L 08/28/21 04:15 Plt Count 267 10^3/cmm (130-400) 08/28/21 04:15 MPV 10.7 fL (7.4-10.4) H 08/28/21 04:15 Neut % (Auto) 65.2 % 08/28/21 04:15 Lymph % (Auto) 24.2 % 08/28/21 04:15 [place] % (Auto) 6.8 % 08/28/21 04:15 Eos % (Auto) 2.5 % 08/28/21 04:15 Baso % (Auto) 0.9 % 08/28/21 04:15 Neut # (Auto) 6.23 10^3/uL (1.8-7.7) 08/28/21 04:15 Lymph # (Auto) 2.3 10^3/uL (0.8-4.8) 08/28/21 04:15 [place] # (Auto) 0.7 10^3/uL (0.2-0.9) 08/28/21 04:15 Eos # (Auto) 0.2 10^3/uL (0.0-0.8) 08/28/21 04:15 Baso # (Auto) 0.1 10^3/uL (0.0-0.1) 08/28/21 04:15 Nucleated RBC % (auto) 0 % 08/28/21 04:15 Nucleated RBCs # 0.0 /100WBC 08/28/21 04:15 Sodium 135 mmol/L (136-145) L 08/28/21 04:15 Potassium 3.8 mmol/L (3.5-5.1) 08/28/21 04:15 Chloride 102 mmol/L (98-107) 08/28/21 04:15 Carbon Dioxide 22 mmol/L (22-29) 08/28/21 04:15 Anion Gap 14.8 (5-19) 08/28/21 04:15 BUN 16 mg/dL (6-20) 08/28/21 04:15 Creatinine 0.9 mg/dL (0.7-1.2) 08/28/21 04:15 GFR Calculation 95.5 mL/min (90-130) 08/28/21 04:15 Glucose 108 mg/dL (65-115) 08/28/21 04:15 Calculated Osmolality 282 mOsm/kg (285-295) L 08/28/21 04:15 Lactate 1.2 mmol/L (0.5-2.2) 08/28/21 04:15 Calcium 9.6 mg/dL (8.5-10.5) 08/28/21 04:15 Total Bilirubin 0.3 mg/dL (0.15-1.2) 08/28/21 04:15 AST 23 U/L (0-40) 08/28/21 04:15 ALT 33 U/L (0-41) 08/28/21 04:15 Alkaline Phosphatase 111 IU/L (40-130) 08/28/21 04:15 C-Reactive Protein 18.1 mg/L (0.0-4.9) H 08/28/21 04:15 Total Protein 8.1 g/dL (6.6-8.7) 08/28/21 04:15 Albumin 4.0 g/dL (3.5-5.2) 08/28/21 04:15 Globulin 4.1 g/dL (1.3-4.6) 08/28/21 04:15 Lipase 33 U/L (13-60) 08/28/21 04:15 Urine Color Yellow (Yellow) 08/28/21 04:46 Urine Appearance Clear (CLEAR) 08/28/21 04:46 Urine pH 5 (5-7) 08/28/21 04:46 Ur Specific [place] 1.025 (1.005-1.030) 08/28/21 04:46 Urine Protein Neg (Negative) 08/28/21 04:46 Urine Glucose (UA) Norm (Normal) 08/28/21 04:46 Urine Ketones 1+ (Negative) H 08/28/21 04:46 Urine Blood 2+ (Negative) H 08/28/21 04:46 Urine Nitrate Negative (Negative) 08/28/21 04:46 Urine Bilirubin Neg (Negative) 08/28/21 04:46 Urine Urobilinogen 4 mg/dL (Negative) H 08/28/21 04:46 Ur Leukocyte Esterase Negative (Negative) 08/28/21 04:46 Urine RBC 5-10 /hpf (0-2) H 08/28/21 04:46 Urine WBC 0-4 /hpf (0-5) H 08/28/21 04:46 Ur Squamous Epith Cells 0-4 /hpf (0-5) H 08/28/21 04:46 Amorphous Sediment Not Reportable 08/28/21 04:46 Urine Bacteria Trace /hpf (NONE) 08/28/21 04:46 Urine Mucus 4+ /hpf 08/28/21 04:46 Discharge Plan Discharge Patient Disposition: Home Clinical Impression: Closed rib fracture Condition: Stable Prescriptions: New hydrocodone-acetaminophen 5-325 mg tablet 1 tab PO Q8H PRN (Reason: pain) Qty: 7 0RF No Action albuterol sulfate 90 mcg/actuation HFA aerosol inhaler 2 inh INHALATION Q6H PRN (Reason: shortness of breath or wheezing) Qty: 8.5 0RF ibuprofen 800 mg tablet 800 mg PO Q8H PRN (Reason: pain) Qty: 20 0RF Medrol (Scott) 4 mg tablets,dose pack See Rx Instructions .ROUTE .COMPLEX Qty: 21 0RF Rx Instructions: orally per package directions Discharge Orders: Discharge ED (Routine); Ordered 08/28/21 Ordered By: Esteban Werner Patient Instructions: Rib Fracture (ED), Opioid Safety Activity Restrictions/Additional Instructions: Return for worsening pain despite treatment, shortness of breath, fever, cough with sputum production, coughing up blood, any other concerning symptoms. Coding Level of Care Code ED Hard Candy Batch Mixer for Chg Fwd
== END 2021-08-28 06:04 | disposition home or self-care (01) ==
PROVIDERS: Emergency Provider Emergency Medicine
DX: S22.32XA Fracture of one rib, left side, initial encounter for closed fracture (principal); W18.30XA Fall on same level, unspecified, initial encounter; F17.210 Nicotine dependence, cigarettes, uncomplicated
CPT/HCPCS: 74177; 80053; 81001; 83605; 83690; 85025; 86140; 96360; 99283; J7030; Q9967

== ENCOUNTER 2022-09-28 07:03 | Emergency (ER) | payer SELFPAY ==
[2022-09-28 07:16] VITALS: BP 133/85; PULSE 78; RESP 16; TEMP 36.6; O2SAT 99
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
[2022-09-28] MEDS: tetracaine 0.5% Op Soln 4 mL Btl 1 DROP EYE-RIGHT (07:47)
[2022-09-28 09:10] VITALS: BP 117/88; PULSE 66; RESP 16; O2SAT 100
[2022-09-28] MEDS: cyclopentolate 1% Op Soln 2 mL Btl 1 DROP EYE-RIGHT (09:13)
[2022-09-28] MEDS: fluorescein 1 mg Strip EYE-LEFT (09:14)
--- NOTE | 2022-09-28 09:15 | PC.NURSE ---
PT REFUSED TETANUS VACCINE. CYCLOPENTOLATE AND FLU-BELINDA ADMINISTERED BY PHYSICIAN.
[2022-09-28 09:16] VITALS: BP 117/88; PULSE 64; RESP 16; O2SAT 100
--- NOTE | 2022-09-28 10:47 | DCPLANNER ---
Addendum entered by Ольга Curiel 09/28/22 14:08: manager medical writing called to confirm that clinic had received patients information. manager medical writing was told that facility received patients information, it will be reviewed and clinic will call patient with appointment information. Original Note: manager medical writing had message to refer patient to ophthalmology, case hardener faxed patients information to the office of Dr. Ross. Patients information will be reviewed, clinic will call patient with appointment information.
--- NOTE | 2022-10-03 15:38 | DCPLANNER ---
wind project manager called patient due to no primary care provider - no answer at this time.
== END 2022-09-28 09:17 | disposition home or self-care (01) ==
PROVIDERS: Emergency Provider Family Medicine
DX: S05.01XA Injury of conjunctiva and corneal abrasion without foreign body, right eye, initial encounter (principal); Y04.2XXA Assault by strike against or bumped into by another person, initial encounter; F17.210 Nicotine dependence, cigarettes, uncomplicated
CPT/HCPCS: 99283

== ENCOUNTER 2023-02-08 09:58 | Emergency (ER) | payer SELFPAY ==
[2023-02-08 10:01] VITALS: BP 145/75; PULSE 83; RESP 17; TEMP 36.5; O2SAT 100; BMI 29.5
--- NOTE | 2023-02-08 10:03 | XR_ITS ---
WS: [id number] Exam: XR chest 2V* [id number] Date/Time of Exam: 02/08/2023 10:25 AM Reason For Exam: cp Comparison 08/12/2019. Findings: The lungs are clear and fully expanded. Costophrenic angles are sharp. No infiltrates. Bronchovascula r relief appears normal. Cardiac silhouette is unremarkable. Bony elements are intact. IMPRESSION: Unremarkable chest radiograph.
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
[2023-02-08] MEDS: ketorolac 30 mg/mL INJ IM (10:16)
[2023-02-08] MEDS: HYDROcodone-acetaminophen 5-325 mg Tablet 1 TAB PO (10:16)
== END 2023-02-08 10:51 | disposition home or self-care (01) ==
PROVIDERS: Emergency Provider Emergency Medicine
DX: S20.212A Contusion of left front wall of thorax, initial encounter (principal); F17.210 Nicotine dependence, cigarettes, uncomplicated; V19.3XXA Pedal cyclist (driver) (passenger) injured in unspecified nontraffic accident, initial encounter
CPT/HCPCS: 71046; 96372; 99284; J1885

== ENCOUNTER 2023-02-13 02:32 | Emergency (ER) | payer SELFPAY ==
[2023-02-13 02:37] VITALS: BMI 29.5
--- NOTE | 2023-02-13 02:39 | ED.C_ITS ---
Documented by User: Matthew Brizuela DO 02/13/23 05:33 HPI - Psych General: Chief Complaint: Psychiatric Symptoms Stated Complaint: SI Time Seen by Provider: 02/13/23 02:37 History of Present Illness: Patient presents to the ER today with complaints of suicidal ideation. Patient says that he lost his job and is homeless he just has nothing to live for and p lans on trying to hang himself. Patient has been to the crisis center for multiple days in a row and has been inpatient but not for quite a while. Review of Systems General: Reports: 10 or more systems reviewed and unremarkable except in HPI and below PFSH ED PFSH: Social History Smoking and tobacco status: current every day smoker Physical Exam HENMT: COMMON NORMALS: normocephalic, atraumatic, hearing grossly normal bila terally, external ears normal, Normal external nose present and moist oral mucous membranes HEAD & SCALP: normocephalic and atraumatic NOSE: Normal external nose present EXTERNAL EAR: Yes external ears normal Neck/C-Spine: COMMON NORMALS: no JVD Chest: COMMONS NORMALS: normal inspection of the chest and normal palpation of entire chest wall Resp: COMMON NORMALS: normal respiratory effort, No retractions, No use of accessory muscles and clear to auscultation bilaterally AUSCULTATION: clear to auscultation bilaterally Cardio: COMMON NORMALS: no JVD, regular rate, regular rhythm, S1 normal heart sound present, S2 normal heart sound present, No gallops present (Cardio), No clicks present (Cardio), No murmurs present (Cardio) and No rub (Cardio) RATE: regular rate RHYTHM: regular rhythm HEART SOUNDS: S1 normal heart sound present and S2 normal heart sound present GI: COMMON NORMALS: Normal to inspection, nondistended, normoactive bowel sounds present, Soft to palpation, non-tender, No hepatosplenomegaly present and no masses PALPATION: Yes Soft to palpation and Yes No hepatosplenomegaly present : COMMON NORMALS: Yes no CVA tenderness BLADDER/KIDNEY EXAM: Yes no CVA tenderness Back/Pelvis: COMMON NORMALS: no CVA tenderness Course Vital Signs: Vital signs: Vital Signs Temperature 97.7 F 02/13/23 02:41 Pulse Rate 73 02/13/23 02:41 Respiratory Rate 16 09/20/23 02:41 Blood Pressure 133/80 02/13/23 02:41 Pulse Oximetry 98 02/13/23 02:41 Oxygen Delivery Me thod Room Air 02/13/23 02:41 MDM - Psych Differential Diagnosis Likely suicidal ideation and depression; Unlikely acute psychosis, chronic schizophrenia, bipolar disorder, drug-induced psychotic disorder or acute anxiety Medical Records I reviewed the patient's medical records. Lab Data I reviewed the patient's lab results. 02/13/23 02:30 02/13/23 02:30 Radiology Impressions Chest X-Ray 02/13/23 04:08 IMPRESSION: No acute findings. Laboratory Results WBC 10.05 10^3/uL (3.29-11.43) 02/13/23 02:30 RBC 4.51 10^6/uL (3.85-5.65) 02/13/23 02:30 Hgb 14.50 g/dL (11.27-16.99) 02/13/23 02:30 Hct 43.7 % (37-53) 02/13/23 02:30 MCV 96.9 fl (82-101) 02/13/23 02:30 MCH 32.2 pg (27-33) 02/13/23 02:30 MCHC 33.2 g/dL (30-55) 02/13/23 02:30 RDW 11.9 % (12.1-15.1) L 02/13/23 02:30 Plt Count 293 10^3/cmm (157-399) 02/13/23 02:30 MPV 9.7 fL (7.4-10.4) 02/13/23 02:30 Neut % (Auto) 61.7 % 02/13/23 02:30 Lymph % (Auto) 27.8 % 02/13/23 02:30 [place] % (Auto) 6.4 % 02/13/23 02:30 Eos % (Auto) 3.0 % 02/13/23 02:30 Baso % (Auto) 0.6 % 02/13/23 02:30 Neut # (Auto) 6.21 10^3/uL (1.8-7.7) 02/13/23 02:30 Lymph # (Auto) 2.8 10^3/uL (0.8-4.8) 02/13/23 02:30 [place] # (Auto) 0.6 10^3/uL (0.2-0.9) 02/13/23 02:30 Eos # (Auto) 0.3 10^3/uL (0.0-0.8) 02/13/23 02:30 Baso # (Auto) 0.1 10^3/uL (0.0-0.1) 02/13/23 02:30 Nucleated RBC % (auto) 0 % 02/13/23 02:30 Nucleated RBCs # 0.0 /100WBC 02/13/23 02:30 Sodium 142 mmol/L (136-145) 02/13/23 02:30 Potassium 3.9 mmol/L (3.5-5.1) 02/13/23 02:30 Chloride 105 mmol/L (98-107) 02/13/23 02:30 Carbon Dioxide 29 mmol/L (22-29) 02/13/23 02:30 Anion Gap 11.9 (5-19) 02/13/23 02:30 BUN 19 mg/dL (6-20) 02/13/23 02:30 Creatinine 0.9 mg/dL (0.7-1.2) 02/13/23 02:30 GFR Calculation 94.4 mL/min (90-130) 02/13/23 02:30 Glucose 95 mg/dL (65-115) 02/13/23 02:30 Calculated Osmolality 296 mOsm/kg (285-295) H 02/13/23 02:30 Calcium 9.0 mg/dL (8.5-10.5) 02/13/23 02:30 Total Bilirubin 0.2 mg/dL (0.15-1.2) 02/13/23 02:30 AST 16 U/L (0-40) 02/13/23 02:30 ALT 17 U/L (0-41) 02/13/23 02:30 Alkaline Phosphatase 81 U/L (40-130) 02/13/23 02:30 Total Protein 7.4 g/dL (6.6-8.7) 02/13/23 02:30 Albumin 4.1 g/dL (3.5-5.2) 02/13/23 02:30 Globulin 3.3 g/dL (1.3-4.6) 02/13/23 02:30 TSH 2.45 uIU/mL (0.27-4.20) 02/13/23 02:30 Urine Color Yellow (Yellow) 02/13/23 02:45 Urine Appearance Clear (CLEAR) 02/13/23 02:45 Urine pH 5 (5-7) 02/13/23 02:45 Ur Specific [place] 1.020 (1.005-1.030) 02/13/23 02:45 Urine Protein Neg (Negative) 02/13/23 02:45 Urine Glucose (UA) Norm (Normal) 02/13/23 02:45 Urine Ketones Negative (Negative) 02/13/23 02:45 Urine Blood Neg (Negative) 02/13/23 02:45 Urine Nitrate Negative (Negative) 02/13/23 02:45 Urine Bilirubin Neg (Negative) 02/13/23 02:45 Urine Urobilinogen 1 mg/dL (Negative) H 02/13/23 02:45 Ur Leukocyte Esterase Negative (Negative) 02/13/23 02:45 Salicylates < 0.3 mg/dL (3-10) L 02/13/23 02:30 Urine Opiates Screen Negative ng/mL (Negative) 02/13/23 02:45 Acetaminophen < 5.0 ug/mL (10-30) L 02/13/23 02:30 Ur Barbiturates Screen Negative ng/mL (Negative) 02/13/23 02:45 Ur Phencyclidine Scrn Negative ng/mL (Negative) 02/13/23 02:45 Ur Amphetamines Screen Positive ng/mL (Negative) H 02/13/23 02:45 U Benzodiazepines Scrn Negative ng/mL (Negative) 02/13/23 02:45 Urine Cocaine Screen Negative ng/mL (Negative) 02/13/23 02:45 U Marijuana (THC) Screen Negative ng/mL (Negative) 02/13/23 02:45 Ethyl Alcohol < 10 mg/dL (0-10) 02/13/23 02:30 Coronavirus 229E (PCR) Not detected (NOT DETECT) 02/13/23 04:40 SARS-CoV-2 (PCR) Not detected (NOT DETECT) 02/13/23 04:40 No radiology studies performed this visit EKG Data EKG 1: I personally reviewed and interpreted this EKG as follows: EKG interpretation date: 02/13/23 EKG interpretation time: 04:44 Prior EKG tracings: not available for review Interpretation: EKG showed ventricular rate 70 beats minute, UT interval 148, QRS duration 100, QTc of 392, sinus rhythm with no ST-T wave changes Discharge Plan Discharge Patient Disposition: Home Clinical Impression: Depression Condition: Stable Prescriptions: No Action No Known Home Medications Discharge Orders: Discharge ED (Routine); Ordered 02/13/23 Ordered By: Fili Lopez Discharge Diet: Advance as tolerated Discharge Activity: Resume usual activity Patient Instructions: Depression (ED) Coding Level of Care Code ED Rn Orthopaedics for Chg Fwd Documented by User: Fili Lopez MD 02/13/23 08:45 HPI - Psych General: Chief Complaint: Psychiatric Symptoms Stated Complaint: SI Time Seen by Provider: 02/13/23 02:37 PFSH ED PFSH: Social History Smoking and tobacco status: current every day smoker Course Vital Signs: Vital signs: Vital Signs Temperature 97.7 F 02/13/23 02:41 Pulse Rate 73 02/13/23 02:41 Respiratory Rate 16 02/13/23 02:41 Blood Pressure 133/80 02/13/23 02:41 Pulse Oximetry 98 02/13/23 02:41 Oxygen Delivery Me thod Room Air 02/13/23 02:41 MDM - Psych Medical Decision Making pt presents here with depression. He is no longer suicidal. I did have Dr. caldera evaluate and he agrees pt is not a threat to himself or others and he is stable for discharge. he is to return if worsening. Lab Data 02/13/23 02:30 02/13/23 02:30 Radiology Impressions Chest X-Ray 02/13/23 04:08 IMPRESSION: No acute findings. Laboratory Results WBC 10.05 10^3/uL (3.29-11.43) 02/13/23 02:30 RBC 4.51 10^6/uL (3.85-5.65) 02/13/23 02:30 Hgb 14.50 g/dL (11.27-16.99) 02/13/23 02:30 Hct 43.7 % (37-53) 02/13/23 02:30 MCV 96.9 fl (82-101) 02/13/23 02:30 MCH 32.2 pg (27-33) 02/13/23 02:30 MCHC 33.2 g/dL (30-55) 02/13/23 02:30 RDW 11.9 % (12.1-15.1) L 02/13/23 02:30 Plt Count 293 10^3/cmm (157-399) 02/13/23 02:30 MPV 9.7 fL (7.4-10.4) 02/13/23 02:30 Neut % (Auto) 61.7 % 02/13/23 02:30 Lymph % (Auto) 27.8 % 02/13/23 02:30 [place] % (Auto) 6.4 % 02/13/23 02:30 Eos % (Auto) 3.0 % 02/13/23 02:30 Baso % (Auto) 0.6 % 02/13/23 02:30 Neut # (Auto) 6.21 10^3/uL (1.8-7.7) 02/13/23 02:30 Lymph # (Auto) 2.8 10^3/uL (0.8-4.8) 02/13/23 02:30 [place] # (Auto) 0.6 10^3/uL (0.2-0.9) 02/13/23 02:30 Eos # (Auto) 0.3 10^3/uL (0.0-0.8) 02/13/23 02:30 Baso # (Auto) 0.1 10^3/uL (0.0-0.1) 02/13/23 02:30 Nucleated RBC % (auto) 0 % 02/13/23 02:30 Nucleated RBCs # 0.0 /100WBC 02/13/23 02:30 Sodium 142 mmol/L (136-145) 02/13/23 02:30 Potassium 3.9 mmol/L (3.5-5.1) 02/13/23 02:30 Chloride 105 mmol/L (98-107) 02/13/23 02:30 Carbon Dioxide 29 mmol/L (22-29) 02/13/23 02:30 Anion Gap 11.9 (5-19) 02/13/23 02:30 BUN 19 mg/dL (6-20) 02/13/23 02:30 Creatinine 0.9 mg/dL (0.7-1.2) 02/13/23 02:30 GFR Calculation 94.4 mL/min (90-130) 02/13/23 02:30 Glucose 95 mg/dL (65-115) 02/13/23 02:30 Calculated Osmolality 296 mOsm/kg (285-295) H 02/13/23 02:30 Calcium 9.0 mg/dL (8.5-10.5) 02/13/23 02:30 Total Bilirubin 0.2 mg/dL (0.15-1.2) 02/13/23 02:30 AST 16 U/L (0-40) 02/13/23 02:30 ALT 17 U/L (0-41) 02/13/23 02:30 Alkaline Phosphatase 81 U/L (40-130) 02/13/23 02:30 Total Protein 7.4 g/dL (6.6-8.7) 02/13/23 02:30 Albumin 4.1 g/dL (3.5-5.2) 02/13/23 02:30 Globulin 3.3 g/dL (1.3-4.6) 02/13/23 02:30 TSH 2.45 uIU/mL (0.27-4.20) 02/13/23 02:30 Urine Color Yellow (Yellow) 02/13/23 02:45 Urine Appearance Clear (CLEAR) 02/13/23 02:45 Urine pH 5 (5-7) 02/13/23 02:45 Ur Specific [place] 1.020 (1.005-1.030) 02/13/23 02:45 Urine Protein Neg (Negative) 02/13/23 02:45 Urine Glucose (UA) Norm (Normal) 02/13/23 02:45 Urine Ketones Negative (Negative) 02/13/23 02:45 Urine Blood Neg (Negative) 02/13/23 02:45 Urine Nitrate Negative (Negative) 02/13/23 02:45 Urine Bilirubin Neg (Negative) 02/13/23 02:45 Urine Urobilinogen 1 mg/dL (Negative) H 02/13/23 02:45 Ur Leukocyte Esterase Negative (Negative) 02/13/23 02:45 Salicylates < 0.3 mg/dL (3-10) L 02/13/23 02:30 Urine Opiates Screen Negative ng/mL (Negative) 02/13/23 02:45 Acetaminophen < 5.0 ug/mL (10-30) L 02/13/23 02:30 Ur Barbiturates Screen Negative ng/mL (Negative) 02/13/23 02:45 Ur Phencyclidine Scrn Negative ng/mL (Negative) 02/13/23 02:45 Ur Amphetamines Screen Positive ng/mL (Negative) H 02/13/23 02:45 U Benzodiazepines Scrn Negative ng/mL (Negative) 02/13/23 02:45 Urine Cocaine Screen Negative ng/mL (Negative) 02/13/23 02:45 U Marijuana (THC) Screen Negative ng/mL (Negative) 02/13/23 02:45 Ethyl Alcohol < 10 mg/dL (0-10) 02/13/23 02:30 Coronavirus 229E (PCR) Not detected (NOT DETECT) 02/13/23 04:40 SARS-CoV-2 (PCR) Not detected (NOT DETECT) 02/13/23 04:40 Discharge Plan Discharge Patient Disposition: Home Clinical Impression: Depression Condition: Stable Prescriptions: No Action No Known Home Medications Discharge Orders: Discharge ED (Routine); Ordered 02/13/23 Ordered By: Fili Lopez Discharge Diet: Advance as tolerated Discharge Activity: Resume usual activity Patient Instructions: Depression (ED) Coding Level of Care Code ED Rn Orthopaedics for Mary Chacon
[2023-02-13 02:41] VITALS: BP 133/80; PULSE 73; RESP 16; TEMP 36.5; O2SAT 98
[2023-02-13 02:56] LABS: Basophils # 0.1 10^3/uL (0.0-0.1); Basophils % 0.6 %; Eosinophils # 0.3 10^3/uL (0.0-0.8); Hematocrit 43.7 % (37-53); Lymphocytes # 2.8 10^3/uL (0.8-4.8); Lymphocytes % 27.8 %; Mean Corpuscular HGB Conc 33.2 g/dL (30-55); Mean Corpuscular Hemoglobin 32.2 pg (27-33); Mean Corpuscular Volume 96.9 fl (82-101); Mean Platelet Volume 9.7 fL (7.4-10.4); Monocytes # 0.6 10^3/uL (0.2-0.9); Monocytes % 6.4 %; Neutrophils # 6.21 10^3/uL (1.8-7.7); Neutrophils % 61.7 %; Nucleated Red Blood Cells % 0 %; Platelet Count 293 10^3/cmm (157-399); Red Blood Count 4.51 10^6/uL (3.85-5.65); Red Cell Distribution Width 11.9 % (12.1-15.1); White Blood Count 10.05 10^3/uL (3.29-11.43)
[2023-02-13 02:56] LABS: Add Urine Microscopic? NO; Charge for UA Resulting for Rev
[2023-02-13 02:57] LABS: Bilirubin Urine Neg (Negative); Blood Urine Neg (Negative); Glucose Urine UA Norm (Normal); Ketones Urine Negative (Negative); Leukocyte Esterase Urine Negative (Negative); Nitrate Urine Negative (Negative); Protein Urine Neg (Negative); Urine Appearance Clear (CLEAR); Urine Color Yellow (Yellow); Urobilinogen Urine 1 mg/dL (Negative); pH Urine 5 (5-7)
[2023-02-13 03:07] LABS: Amphetamines Screen Urine Positive (Negative); Barbiturates Screen Urine Negative (Negative); Benzodiazepines Screen Urine Negative (Negative); Cocaine Screen Urine Negative (Negative); Opiate Screen Urine Negative (Negative); PCP Screen Urine Negative (Negative); THC Screen Urine Negative (Negative)
[2023-02-13 03:21] LABS: Alanine Aminotransferase 17 U/L (0-41); Albumin Level 4.1 g/dL (3.5-5.2); Alcohol Level < 10 mg/dL (0-10); Alkaline Phosphatase 81 U/L (40-130); Anion Gap 11.9 (5-19); Aspartate Amino Transferase 16 U/L (0-40); Blood Urea Nitrogen 19 mg/dL (6-20); Carbon Dioxide 29 mmol/L (22-29); Chloride 105 mmol/L (98-107); Globulin 3.3 g/dL (1.3-4.6); Glomerular Filtration Rate 94.4 mL/min (90-130); Glucose 95 mg/dL (65-115); Osmolality Calculated 296 mOsm/kg (285-295); Potassium 3.9 mmol/L (3.5-5.1); Sodium 142 mmol/L (136-145); Total Bilirubin 0.2 mg/dL (0.15-1.2); Total Protein 7.4 g/dL (6.6-8.7)
[2023-02-13 03:31] LABS: Salicylate < 0.3 mg/dL (3-10)
[2023-02-13 03:32] LABS: Acetaminophen < 5.0 ug/mL (10-30)
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
[2023-02-13 04:37] LABS: Thyroid Stimulating Hormone 2.45 uIU/mL (0.27-4.20)
--- NOTE | 2023-02-13 04:44 | ECG_ITS ---
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 Measurements Intervals [place] Rate: 70 P: 25 IL: 148 QRS: 18 QRSD: 100 T: 32 QT: 371 QTc: 402 Interpretive Statements SINUS RHYTHM Compared to ECG 04/24/2017 16:14:29 Sinus bradycardia no longer present Electronically Signed On 02-14-2023 7:58:39 CDT by Reinier Pierce M.D. [id number]
[2023-02-13 06:36] LABS: Adenovirus Not Detected (NOT DETECT); Chlamydia Pneumoniae Not Detected (NOT DETECT); Coronavirus 229E,HKU1,NL63,OC4 Not Detected (NOT DETECT); Human Metapneumovirus Not Detected (NOT DETECT); Human Rhinovirus/Enterovirus Not Detected (NOT DETECT); Influenza A Not Detected (NOT DETECT); Influenza A H1 Not Detected (NOT DETECT); Influenza A H1-2009 Not Detected (NOT DETECT); Influenza A H3 Not Detected (NOT DETECT); Influenza B Not Detected (NOT DETECT); Mycoplasma Pneumoniae Not Detected (NOT DETECT); Parainfluenza Virus Type 1 Not Detected (NOT DETECT); Parainfluenza Virus Type 2 Not Detected (NOT DETECT); Parainfluenza Virus Type 3 Not Detected (NOT DETECT); Parainfluenza Virus Type 4 Not Detected (NOT DETECT); Respiratory Syncytial Virus A Not Detected (NOT DETECT); Respiratory Syncytial Virus B Not Detected (NOT DETECT); SARS-COV-2 Not Detected (NOT DETECT)
--- NOTE | 2023-02-13 07:12 | PC.NURSE ---
pt resting in bed in no acute distress at this time; 1:1 sitter outside room
--- NOTE | 2023-02-13 07:32 | PC.PHAR ---
PT STATES HE DID NOT TAKE THE METHOCARBAMOL 750 MG OR THE NAPROSYN 500 MG. THEY WERE TAKEN OFF HIS MED LIST. 02/13/23
[2023-02-13 09:13] VITALS: BP 105/67; PULSE 58; RESP 17; O2SAT 96
== END 2023-02-13 09:15 | disposition home or self-care (01) ==
PROVIDERS: Emergency Medicine; Emergency Provider Emergency Medicine
DX: F32.A Depression, unspecified (principal); Z20.822 Contact with and (suspected) exposure to COVID-19; F17.210 Nicotine dependence, cigarettes, uncomplicated
CPT/HCPCS: 36415; 71045; 80053; 80306; 80307; 81003; 84443; 85025; 87635; 93005; 99285

== ENCOUNTER 2023-04-04 22:32 | Emergency (ER) | payer SELFPAY ==
[2023-04-04 22:37] VITALS: BP 143/86; PULSE 86; RESP 14; TEMP 36.6; O2SAT 99; BMI 29.9
--- NOTE | 2023-04-04 22:57 | W.ED.MALEGU ---
HPI - Male Genitourinary General: Chief complaint: Urogenital-Male Stated complaint: wants checked for STD's Time Seen by Provider: 04/04/23 22:40 History of Present Illness: Patient comes in today for complaints of penile discharge for the last 2 months on and off with some urinary discomfort. Patient reports no severe pain. Patient appears nontoxic. Patient denies any chronic medical problems. Patient does endorse unprotected intercourse. Review of Systems General: Reports: 10 or more systems reviewed and unremarkable except in HPI and below : Reports: penile discharge; Denies: genital lesions PFSH ED PFSH: Social History Smoking and tobacco/nicotine status: current every day tobacco/nicotine user Physical Exam Const: COMMON NORMALS: alert HENMT: COMMON NORMALS: normocephalic HEAD & SCALP: normocephalic Neck/C-Spine: COMMON NORMALS: full ROM Resp: COMMON NORMALS: normal respiratory effort Cardio: COMMON NORMALS: regular rate RATE: regular rate : COMMON NORMALS: Yes no CVA tenderness BLADDER/KIDNEY EXAM: Yes no CVA tenderness PENIS: other (Deferred) Back/Pelvis: COMMON NORMALS: no CVA tenderness Neuro: SENSORIUM/ORIENTATION: Yes alert Skin: COMMON NORMALS: no rashes or lesions noted GENERAL SKIN EXAM: no rashes or lesions noted Course Vital Signs: Vital signs: Vital Signs Temperature 97.8 F 04/04/23 22:37 Pulse Rate 86 04/04/23 22:37 Respiratory Rate 14 04/04/23 22:37 Blood Pressure 143/86 04/04/23 22:37 Pulse Oximetry 99 04/04/23 22:37 Oxygen Delivery Me thod Room Air 04/04/23 22:37 MDM - Male Medical Decision Making 38-year-old male patient comes in today for complaints of penile discharge. Patient does endorse unprotected intercourse patient appears nontoxic. Patient refused visual exam and reported no lesions or rashes. Vital signs are normal. No CVA tenderness. No abdominal tenderness. Differential diagnosis includes but not limited to nongonococcal urethritis, gonorrhea, UTI. Patient was treated for STI with 500 mg of Rocephin IM and will be started on a 7-day course of doxycycline 100 mg 2 times a day. This is accordance to the CDC guidelines for urethritis with concerns for sexually transmitted illness. Patient reports understanding of care plan and need for follow-up or return to the ER. Stressed the importance of condom use for protection against STIs. No radiology studies performed this visit Discharge Plan Discharge Patient Disposition: Home Clinical Impression: Urethritis Condition: Stable Prescriptions: New doxycycline hyclate 100 mg capsule 100 mg PO BID 7 Days Qty: 14 0RF Discharge Orders: Discharge ED (Routine); Ordered 04/04/23 Ordered By: Bruce Bhat Discharge Diet: Usual diet Discharge Activity: Increase activity as tolerated Patient Instructions: Nonspecific Urethritis in Men (ED) Activity Restrictions/Additional Instructions: You should always use a condom to protect against sexually transmitted illnesses. Take the full 7-day course of doxycycline to ensure eradication of illness. Follow-up with medical records for final results of test. You can contact the ER charge nurse in 3 to 5 days if you do not receive a call regarding the test. Return to ER for new concerns or worsening symptoms. Coding Level of Care Code ED Gymnastics Coach Or Instructor for Mary Chacon
[2023-04-04] MEDS: cefTRIAXone 500 MG in water for injection-sterile 1 ML IM (23:10)
[2023-04-04] MEDS: doxycycline 100 mg Tablet PO (23:10)
[2023-04-04 23:22] LABS: Add Urine Microscopic? YES; Bacteria Urine TRACE /hpf; Bilirubin Urine Neg (Negative); Blood Urine 2+ (Negative); Glucose Urine UA Norm (Normal); Ketones Urine Negative (Negative); Leukocyte Esterase Urine Negative (Negative); Mucus Urine TRACE /hpf; Nitrate Urine Negative (Negative); Protein Urine Neg (Negative); RBC Urine 0-4 /hpf (0-2); Specific Gravity, Urine 1.025 (1.005-1.030); Squamous Epithelial Cell Urine RARE /hpf (0-5); Urine Appearance Clear (CLEAR); Urine Color Yellow (Yellow); Urobilinogen Urine Norm (Negative); pH Urine 5 (5-7)
[2023-04-04 23:23] LABS: Add Urine Culture? No
[2023-04-04 23:28] VITALS: PULSE 72; RESP 20
[2023-04-06 12:43] LABS: Chlamydia Trachomatis RNA TMA NOT DETECTED (NOT DETECTED); Neisseria Gonorrhoeae RNA, TMA NOT DETECTED (NOT DETECTED)
== END 2023-04-04 23:29 | disposition home or self-care (01) ==
PROVIDERS: Emergency Provider Nurse Practitioner Family
DX: N34.2 Other urethritis (principal); Z72.0 Tobacco use
CPT/HCPCS: 81001; 87491; 87591; 96372; 99284; J0696

== ENCOUNTER 2023-05-09 18:24 | Emergency (ER) | payer SELFPAY ==
[2023-05-09 18:35] VITALS: BP 162/95; PULSE 72; RESP 22; TEMP 36.6; O2SAT 100; BMI 29.5
--- NOTE | 2023-05-09 19:22 | W.ED.GENADLT ---
HPI - General Adult General: Chief complaint: General Medical Stated complaint: anal pain Time Seen by Provider: 05/09/23 19:11 History of Present Illness: 38-year-old male patient comes in today for complaints of possible rectal prolapse. Patient states today he had a large bowel movement and had to strain for a prolonged time on the toilet. Afterwards he noted some protruding from his rectum and thought at first it might have been a hemorrhoid. Patient showered and then after showering looked at it further with a mirror and felt that it was a prolapsed rectum. Patient reports pain and discomfort to the anus. Patient denies any other chronic medical problems. Patient denies any other prior rectal prolapse. Review of Systems General: Reports: 10 or more systems reviewed and unremarkable except in HPI and below GI: Reports: rectal pain PFSH ED PFSH: Social History Smoking and tobacco/nicotine status: current every day tobacco/nicotine user Physical Exam Const: COMMON NORMALS: alert HENMT: COMMON NORMALS: normocephalic HEAD & SCALP: normocephalic Neck/C-Spine: COMMON NORMALS: full ROM Resp: COMMON NORMALS: normal respiratory effort and clear to auscultation bilaterally AUSCULTATION: clear to auscultation bilaterally Cardio: COMMON NORMALS: regular rate and regular rhythm RATE: regular rate RHYTHM: regular rhythm GI: COMMON NORMALS: non-tender RECTAL EXAM: Yes hemorrhoids (Large hemorrhoids protruding around the anal opening) Back/Pelvis: COMMON NORMALS: thoracic and lumbar spine normal to inspection Extremity: COMMON NORMALS: full ROM Neuro: SENSORIUM/ORIENTATION: Yes alert Skin: COMMON NORMALS: turgor normal GENERAL SKIN EXAM: turgor normal Course Vital Signs: Vital signs: Vital Signs Temperature 97.9 F 05/09/23 18:35 Pulse Rate 72 05/09/23 18:35 Respiratory Rate 22 H 05/09/23 18:35 Blood Pressure 162/95 05/09/23 18:35 Pulse Oximetry 100 05/09/23 18:35 Oxygen Delivery Me thod Room Air 05/09/23 18:35 MDM - General Adult Medical Decision Making 38-year-old male patient comes in today with complaints of rectal prolapse. On exam no rectal prolapse is noted the patient has several large hemorrhoids and is encircling the anal opening. Patient voiced a large bowel movement today that took him a long time on the toilet. Vital signs are normal. Differential diagnosis includes not limited to prolapsed rectum, hemorrhoid, thrombosed hemorrhoid. Patient will be started on some hydrocortisone with pramoxine cream to use to the hemorrhoids. Strongly recommended avoiding straining for bowel movements. Also recommended ice for further pain and discomfort. Patient reported understanding and agreed to plan. No radiology studies performed this visit Discharge Plan Discharge Patient Disposition: Home Clinical Impression: Hemorrhoid prolapse Condition: Stable Prescriptions: New hydrocortisone-pramoxine 2.5-1 % cream 1 applic topical TID Qty: 57 0RF Rx Instructions: allow at least 3 hours between applications docusate sodium 100 mg capsule 200 mg PO BID Qty: 60 0RF Discharge Orders: Discharge ED (Routine); Ordered 05/09/23 Ordered By: Bruce Bhat Discharge Diet: Usual diet Discharge Activity: Increase activity as tolerated Patient Instructions: Hemorrhoids (ED) Activity Restrictions/Additional Instructions: Use cream as directed to the anus 3 times a day for pain and swelling. Use a stool softener docusate sodium 2 capsules twice a day to avoid constipation and straining with prolonged periods of time on the toilet. Follow-up with primary care for further instructions. Return to ED for new concerns. Coding Level of Care Code ED Large Animal Veterinarian for Mary Chacon
[2023-05-09] MEDS: phenyleph-mineral oil-petrolat Oint 28 gm 1 APPLIC PR (19:38)
[2023-05-09 19:50] VITALS: PULSE 70; RESP 18; O2SAT 98
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
== END 2023-05-09 19:43 | disposition home or self-care (01) ==
PROVIDERS: Emergency Provider Nurse Practitioner Family
DX: K64.8 Other hemorrhoids (principal); Z72.0 Tobacco use
CPT/HCPCS: 99283

== ENCOUNTER 2023-11-15 02:21 | Emergency (ER) | payer BC, MEDICAID, SELFPAY ==
[2023-11-15 02:28] VITALS: BP 119/68; PULSE 77; RESP 18; TEMP 36.8; O2SAT 95; BMI 29.5
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
[2023-11-15] MEDS: HYDROcodone-acetaminophen 10-325 mg Tablet 1 TAB PO (03:19)
[2023-11-15 03:29] VITALS: PULSE 69; RESP 18; O2SAT 98
== END 2023-11-15 03:13 | disposition home or self-care (01) ==
PROVIDERS: Emergency Provider Emergency Medicine
DX: S59.901A Unspecified injury of right elbow, initial encounter (principal); S49.91XA Unspecified injury of right shoulder and upper arm, initial encounter; Z72.0 Tobacco use; V19.3XXA Pedal cyclist (driver) (passenger) injured in unspecified nontraffic accident, initial encounter
CPT/HCPCS: 73030; 73080; 99283

== ENCOUNTER 2023-11-16 09:11 | Emergency (ER) | payer BC, MEDICAID, SELFPAY ==
[2023-11-16 09:16] VITALS: BP 120/80; PULSE 85; RESP 14; TEMP 36.7; O2SAT 98
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
--- NOTE | 2023-11-16 09:59 | XRR_ITS ---
PROCEDURE INFORMATION: Exam: XR Right Elbow Exam date and time: 11/16/2023 10:15 AM Age: 38 years old Clinical indication: Pain; Elbow; Right; Patient HX: Red and swollen; Additional info: Injury TECHNIQUE: Imaging protocol: Radiologic exam of the right elbow. Views: 3 or more views. COMPARISON: CR (UP EXM, ) 11/15/2023 2:58 AM FINDINGS: Bones/joints: Tiny ossification or calcification posterior to the olecranon suspicious for avulsion fracture. If calcification, this could be due to old soft tissue inflammation or injury. Otherwise, unremarkable. Soft tissues: Soft tissue swelling. Bursitis is possible. Otherwise, unremarkable. XR/XR elbow RT min 3V* [id number] IMPRESSION: 1. Possible avulsion fracture from the olecranon. 2. Soft tissue swelling. Bursitis is possible.
[2023-11-16] MEDS: ketorolac 30 mg/mL INJ 15 MG IM (10:09)
[2023-11-16 10:40] VITALS: BP 121/82; PULSE 75; RESP 16; TEMP 36.7; O2SAT 100
== END 2023-11-16 10:41 | disposition home or self-care (01) ==
PROVIDERS: Emergency Provider Student in an Organized Health Care Education/Training Program
DX: S50.311A Abrasion of right elbow, initial encounter (principal); S49.91XA Unspecified injury of right shoulder and upper arm, initial encounter; Z72.0 Tobacco use; V19.3XXA Pedal cyclist (driver) (passenger) injured in unspecified nontraffic accident, initial encounter
CPT/HCPCS: 73080; 96372; 99284; J1885

== ENCOUNTER 2023-11-30 11:12 | Emergency (ER) | payer BC, MEDICAID, SELFPAY ==
[2023-11-30 11:26] VITALS: BP 140/76; PULSE 79; RESP 18; TEMP 36.8; O2SAT 99; BMI 29.5
--- NOTE | 2023-11-30 11:49 | XRR_ITS ---
PROCEDURE INFORMATION: Exam: XR Right Femur Exam date and time: 11/30/2023 12:05 PM Age: 38 years old Clinical indication: Injury or trauma; Fall; Blunt trauma; Thigh or upper leg; Right; Additional info: Pain, fall TECHNIQUE: Imaging protocol: Radiologic exam of the right femur. Views: 2 views. COMPARISON: CR (PELVIS, ) 11/30/2023 12:05 PM FINDINGS: Bones/joints: Right os acetabulum. No acute fracture or dislocation. No knee joint effusion. Cortical erosions with subchondral sclerosis of the right sacroiliac joints suggestive of sacroiliitis. Soft tissues: Unremarkable. XR/XR femur RT min 2V* [id number] IMPRESSION: No acute fracture or dislocation.
--- NOTE | 2023-11-30 11:49 | XRR_ITS ---
PROCEDURE INFORMATION: Exam: XR Right Hip Exam date and time: 11/30/2023 12:05 PM Age: 38 years old Clinical indication: Injury or trauma; Fall; Blunt trauma (contusions or hematomas); Right; Hip; Additional info: Pain, fall TECHNIQUE: Imaging protocol: Radiologic exam of the right hip. Views: 1 view hip with pelvis when performed. COMPARISON: CT abdomen pelvis w con* [id number] 08/28/2021 4:52 AM FINDINGS: Bones/joints: Right os acetabula. Changes of right sacroiliitis. No acute fracture or dislocation. Cam type deformity of the right femur. Soft tissues: Unremarkable. XR/XR hip RT 2-3V wo/w pel* [id number] IMPRESSION: No acute fracture or dislocation.
[2023-11-30] MEDS: acetaminophen 500 mg Tablet 1000 MG PO (11:55)
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
[2023-11-30 15:07] VITALS: BP 118/77; PULSE 61; O2SAT 97
== END 2023-11-30 15:07 | disposition home or self-care (01) ==
PROVIDERS: Emergency Provider Emergency Medicine
DX: S70.11XA Contusion of right thigh, initial encounter (principal); Z59.00 Homelessness unspecified; F17.210 Nicotine dependence, cigarettes, uncomplicated; Z79.899 Other long term (current) drug therapy; V18.2XXA Unspecified pedal cyclist injured in noncollision transport accident in nontraffic accident, initial encounter
CPT/HCPCS: 73502; 73552; 99284